=== PATIENT | male | born 1965 | race Caucasian/White ===

== ENCOUNTER → 2020-06-28 | Outpatient (CLI) | payer OTHER ==
[~2020-06-28] MED LIST: LAMICTAL100 MG PO
== END ==
LOC: KOH-I 12:18
DX: M54.2 Cervicalgia (principal)
CPT/HCPCS: 72040

== ENCOUNTER → 2021-01-03 | Outpatient (CLI) | payer OTHER | LOC: KOH-I 09:37 | DX: R05.8 Other specified cough (principal) | CPT/HCPCS: 71046 ==